=== PATIENT | female | born 1945 | race Caucasian/White ===

== ENCOUNTER 2025-08-23 09:53 | Outpatient (AMB) | payer MEDICARE, SELFPAY ==
--- NOTE | 2025-08-23 09:15 | MHC.OFFVIS ---
Intake Visit Reasons: f/ u Allergies erythromycin base Allergy (Unknown, Verified 08/21/25 10:21) Unknown Medication List - Last Reconciled 08/23/25 by Martell Chang MD dorzolamide-timolol (PF) 2-0.5 % 1 drp ophthalmic (eye) BID latanoprost 0.005% 1 drp ophthalmic (eye) DAILY lorazepam (Ativan) 0.5 mg PO DAILY PRN melatonin 1 mg PO BEDTIME PRN HPI Comments Details: 80 yr old woman with cerebral microvascular disease. Occasional ringing and clicking in ears. No vertigo. Had laser to [facility] for Glaucoma last week. Her back pain mc sresolved. She developed back pain in February after carrying awkward object on the stairs. [facility] [place] [facility] on 02/19/[place]25. CTA chest showed incident finding of 0.2cm left upper lobe nodule, recommend follow up CT in 1 year. Labs were okay. Occasional tinnitus from time to time. Sleep is disrupted better with medication. Mood was okay. Was having some increased anxiety previously due to family issues and passing of her sister with cancer. Some hearing loss. No true vertigo or tinnitus. Two very brief unrelated presyncopal episodes with negative cardiac work up. Neck pain that is chronic. MRI LS spine on 09/10/15 shows some L2-3 endplate edema, a small Schmorls node and a possible atypical hemangioma and some mild degen disc changes. She has a history of borderline hypertension and mild hypercholesterolemia slipped and fell on ice on 08/15/14 and hit her left shoulder. She had a syncopal episode. Her eyes rolled back and she wasn't coherent. MRI wendy in 2015 showed lacunar infarct in the left anterior internal capsule. The MRI shows mild microvascular disease in the subcortical and deep white matter distribution, not unusual for her age and hypertensive history. There was no evidence of any cord lesion or stroke. [facility] Medical History (Updated 08/23/25 @ 09:19 by Martell Chang MD) Cervical spondylolysis Cervical radiculopathy Insomnia Back pain Review of Systems Const Details: General/Constitutional:? Change in appetitedenies.? Chillsdenies.? Fatiguedenies.? Feverdenies.? Weight gaindenies.? Weight lossdenies. ???Sleep:? Difficulty getting to sleepdenies.? Difficulty maintaining sleepadmits.? Urge to move legsdenies.? Teeth grindingdenies.? Shouting or Kicking during sleepdenies.? Abnormal behavior during sleepdenies.? Excessive sleepdenies.? Snoringdenies.? Daytime sleepinessdenies. ???Respiratory:? Shortness of breathdenies.? Chest paindenies.? Coughdenies. ???Cardiovascular:? Chest pain at restadmits.? Chest pain with exertiondenies.? Claudicationdenies.? Dizzinessdenies.? Fluid accumulation in the legsdenies.? Irregular heartbeatdenies.? Palpitationsdenies. ???Gastrointestinal:? Abdominal paindenies.? Constipationdenies.? Diarrheadenies.? Difficulty swallowingdenies.? Heartburndenies.? Nauseadenies.? Rectal bleedingdenies. ???Genitourinary:? Frequent urinationdenies.? Urgencydenies.? Incontinencedenies.? Erectile Dysfunctiondenies. ???Musculoskeletal:? Neck painadmits.? Back paindenies.? Muscle achesdenies.? Painful jointsdenies.? Sciaticadenies.? Weaknessdenies. ???Neurologic:? Difficulty swallowingdenies.? Balance difficultydenies.? Coordinationnormal.? Difficulty speakingdenies.? Dizzinessdenies.? Faintingdenies.? Gait abnormalitydenies.? Headacheadmits.? Loss of strengthdenies.? Loss of use of extremitydenies.? Low back paindenies.? Memory lossdenies.? Seizuresdenies.? Ticsdenies.? Tingling/NumbnessLeft arm and left lower face.? Transient loss of visiondenies.? Tremordenies. ???Psychiatric:? Anxietyadmits.? Auditory/visual hallucinationsdenies.? Delusionsdenies.? Depressed mooddenies.? Stressorsdenies.? Substance abusedenies.? Suicidal thoughtsdenies. Reports difficulty sleeping and Reports headache(s) ENT Reports headache(s) Musc Reports tingling Neuro Details: left face Reports headache(s) and Reports tingling Psych Reports anxiety Physical Exam Neuro Other: Neurological: Abnormal neurological findings:??none.?Mental Status:??alert and oriented X 3,?Normal attention, orientation, memory and affect.?Cranial Nerves:??Pupils are equal, round and reactive to light. Fundoscopy shows normal disc bilaterally. External occular muscles are intact. Visual quan are full, no ptosis. Face is symmetrical, no facial weakness or droop. Facial sensations are normal. Tongue protrudes in midline. Palate elevates symmetrically. Shoulder shrugging is normal..?Motor Examination:??Normal muscle tone, bulk and strength,?No atrophy or fasciculations,?No drift of the extended upper extremities,?Deep tendon reflexes are 2+?,?Plantars are flexor?.?Straight Leg Raising:??90 degrees.?Sensory Exam:??Normal light touch, temperature, pinprick, vibration and joint-position sensations?,?Rhomberg sign is absent.?Coordination:??no ataxia,?no titubation,?rcskah-ol-vzin, kuez-ngre-ding test and rapid alternating movements were normal.?Gait Exam:??Within normal limits.?Cerebellar Signs:??Gtktml-[id number] and msgs-ju-ycjg is normal,?no dysdiadochokinesia?.?Extrapyramidal System:??No tremor, rigidity with normal facial expressions,?No bradykinesia, no bradyphrenia. Normal arm swing and posture. No propulsion or retropulsion.?Speech:??Normal,?no dysphasia or dysarthria..? Mini Mental Status Exam: Level of Consciousness:??Alert.?Orientation:??Knows correct year, month, date, day and season,?Knows correct city, county and state. Knows correct location and floor.?Registration:??Able to register 3 objects.?Attention:??Serial 7's performed accurately.?Recall:??Able to recall 3 out of 3 objects.?Language:??Normal spontaneous speech, fluency, repetition,naming, comprehension, reading and writing.?Total Score:??30/30.? Assessment & Plan Assessment & Plan (1) Cerebral microvascular disease: Code(s): I67.89 - Other cerebrovascular disease Category: Medical (2) Back pain: Code(s): M54.9 - Dorsalgia, unspecified Category: Medical (3) Cervical spondylolysis: Code(s): M43.02 - Spondylolysis, cervical region Category: Medical Plan Continue to monitor BP. Continue other meds. Does not want anything for sleep. Coding Level of Care Code Est Pt Level 4 (70885) Diagnoses Cerebral microvascular disease I67.89 Back pain M54.9 Cervical spondylolysis M43.02
--- OUTSIDE RECORDS SUMMARY | 2025-08-23 11:50 | XMS_ITS | Patient Health Record ---
Author Organization [facility] Address [address] [place] [address] Care Team Providers Care Visual Supervisor Name Role Phone Rosangela Muse Unavailable [phone] Allergies Allergen (clinical drug ingredient) Drug/Non Drug Allergy documented on EMR Reaction Allergy Type Onset Date Status Corticosteroids Support Glaucoma Drug Allergy Active erythromycin Erythromycin Unknown Drug Allergy A ctive Reason For Referral No Information Medications Medication SIG (Take, Route, Fr equency, Duration) Notes Start Date End Date Status Latanoprost 0.005 % 1 drop into affected eye in the evening Ophthalmic Once a day Ac tive Social History Tobacco Use: Social History Observation Description Date Details (start date - stop date) Never Smoker NA - NA Tobacco Use/Smoking Question Answer Notes Are you a nonsmoker Alcohol Screen (Audit-C) Question Answer Notes Did you have a drink containing alcohol in the p ast year? No Points 0 Interpretation Negative Sexual History Question Answer Notes Had sex in the past 12 months (vaginal, oral, or anal)? No Problems Problem Type SNOMED Code ICD Code Onset Dates Problem Status W/U Status Risk Notes Problem Postmenopausal atrophic vaginitis (24751909) Postmenopausal atrophic vaginitis (N95.2) Active confirmed Problem Age-related osteoporosis (684705952) Age-related osteoporosis without current pathological fracture (M81.0) Active confirmed Problem Essential hypertension (16184747) Essential (primary) hypertension (I10) Active confirmed Problem Hyperlipidemia (30304993) Hyperlipidemia, unspecified (E78.5) Active confirmed Problem Cataract (disorder) (469956577) Cataract in diseases classified elsewhere (H28) Active confirmed Problem Menopause (115127619) Menopausal and female climacteric states (N95.1) Active confirmed Problem Female genital organ symptoms (600838011) Other specified symptom associated with female genital organs (625.8) Active confirmed Major Problem Menopausal symptom (16655102) Symptomatic menopausal or female climacteric states (627.2) Active confirmed Major Problem Postmenopausal atrophic vaginitis (16595741) Postmenopausal atrophic vaginitis (627.3) Active confirmed Diag Problem Osteoporosis (09599037) Unspecified osteoporosis (733.00) Active confirmed Diag Problem Gynecological examination normal (076290682608990) Routine gynecological examination (V72.31) Active confirmed Diag Problem Screening for malignant neoplasm of cervix (032575734) Screening for malignant neoplasm of the cervix (V76.2) Active confirmed Diag Problem Screening for malignant neoplasm of colon (850503798) Special screening for malignant neoplasms, colon (V76.51) Active confirmed Major Plan Of Treatment Pending Test Test Name Order Date DIAGNOSTIC MAMMOGRAM, LEFT BREAST 2021 MM Digital Mammo Screening 07/18/2022 Insurance Providers Payer Name Payer Address Payer Phone Subscriber Number Group Number Insured Name Patient Relationship to Insured Coverage Start Date Coverage End Date MEDICARE [address] [facility] [place] [id number] ATHTE ZAPIEN Self - patient is the insured [facility] [address] [place] [address] [id number] TE KNOWLES Self - patient is the insured Medical (General) History Medical History History ICD Code Menopausal and female climacteric states N95.1 Postmenopausal atrophic vaginitis N95.2 Age-related osteoporosis without current pathological fracture M81.0 Essential (primary) hypertension I10 Cataract in diseases classified elsewher e H28 Hyperlipidemia, unspecified E78.5 Surgical History Surgery Date(Month/Year) Breast Mass Excision Left S&O Colonoscopy Hospitalization History Reason Date(Month/Year) See Surgical Hx
--- OUTSIDE RECORDS SUMMARY | 2025-08-23 11:50 | XMS_ITS | Patient Health Record ---
Author Organization [facility] Address [address] [place] [address] Care Team Providers Care Supervisor Whipped Topping Name Role Phone RENETTA LOPEZ [phone] Reason For Referral No Information Medications Medication SIG (Take, Route, Frequency, Duration) Notes Start Date End Date Status Ventolin HFA (Albuterol) 90mcg/1actuatio *please review for potential update for e-prescription and drug interaction check* Ventolin HFA (Albuterol) 90mcg/1actuation Oral Inhaler Inhale 2 puff(s) by mouth q 4 to 6 hr prn cough/wheeze #18 (Eighteen) gm 10/03/2014 Active Ceftin (Cefuroxime Axetil) 500mg Tablet Take 1 tablet(s) by mouth q12h for 10 days; Duration: 10 *please review for potential update for e-prescription and drug interaction check* Ceftin (Cefuroxime Axetil) 500mg Tablet 1 tab(s) po bid for 10 days #20 (Twenty) tablet(s) 10/24/2010 Active Problems Problem Type SNOMED Code ICD Code Onset Dates Problem Status W/U Status Risk Notes Problem Acute non-suppurative otitis media - serous (778119230) Acute serous otitis media (381.01) 1 0 confirmed [id number]- Problem URI (5483201960) URI (465.8) 5 0 confirmed [id number]- Problem Acute upper respiratory infection (40185057) Upper respiratory illness (465.8) 1 0 confirmed [id number]- Plan Of Treatment No Information Insurance Providers Payer Name Payer Address Payer Phone Subscriber Number Group Number Insured Name Patient Relationship to Insured Coverage Start Date Coverage End Date Medicare Part B [address] [place] [phone] [id number] null, null Self - patient is the insured [facility] [address] [place] [address] [id number] null, null Self - patient is the insured
--- OUTSIDE RECORDS SUMMARY | 2025-08-23 11:50 | XMS_ITS | Clinical Summary ---
Author Organization [address] Address [address] [place] [id number] Care Team Providers Care Water Rights Specialist Name Role Phone No, Pcp (Do Not Change Name) Primary Care Provid er Unavailable Allergies Active Allergy Reactions Criticality Noted Date Comments Achromycin GI Upset High 06/09/2024 Medications latanoprost (XALATAN) 0.005 % ophthalmic solution Place 1 drop into both eyes nightly. Active Family History Relation Name Status Comments Father Mother Social History Tobacco Use Types Packs/Day Years Used Date Smoking Tobacco: Never Tobacco Cessation:Counseling Given: Not Answered Alcohol Use Standard Drinks/Week Comments Not Currently 0 (1 standard drink = 0.6 oz pur e alcohol) Comments Unknown Sex and Gender Information Value Date Recorded Sex Assigned at Not on file Legal Sex Female 8:42 AM EDT Gender Identity Not on file Sexual Orientation Not on file Last Filed Vital Signs Vital Sign Reading Time Taken Comments Blood Pressure 154/91 06/09/2024 3:41 PM EDT Pulse 63 06/09/2024 3:41 PM EDT Temperature 36.9 C (98.5 F) 06/09/2024 3:41 PM EDT Respiratory Rate 16 06/09/2024 3:41 PM EDT Oxygen Saturation 98% 06/09/2024 3:41 PM EDT Inhaled Oxygen Concentration - - Weight 63.5 kg (140 lb) 06/09/2024 3:41 PM EDT Height 166.4 cm (5' 5.5 ) 06/09/2024 3:41 PM EDT Body Mass Index 22.94 06/09/2024 3:41 PM EDT Plan of Treatment Health Maintenance Due Date Last Done Comments HIV screening 1956 Tetanus adult (Td q 10,TDAP once) 1963 Lipid disorder screening 1983 Diabetes screening 1988 Pneumococcal Vaccine (50+ ye ars) (1 of 1 - PCV) 1993 Shingles vaccine (Shingrix) (1 of 2 - Shingrix (RZV) 2 Dose Standard Series) 1993 Osteoporosis screening (bone density) 2008 RSV Immunization (1 - 1-dose 75+ series) 2018 Influenza vaccine 04/07/2025 Covid-19 vaccine series ( - 2024- season) 2025 Breast cancer screening Discontinued Cervical cancer screening Discontinued Colon cancer screening, Colonoscopy Discontinued Meningococcal B Vaccine Aged Out No l onger eligible based on patient's age to complete this topic Meningococcal Vaccine Aged Out No ra demi eligible based on patient's age to complete [place] [id number] [address] [facility] [place] [id number] [address] [place] [address] [facility] Care Teams Water Rights Specialist Relationship Specialty Start Date End Date No, Pcp (Do Not Change Name) PCP - General 06/09/24
--- OUTSIDE RECORDS SUMMARY | 2025-08-23 11:50 | XMS_ITS ---
Author Name [facility] Organization Unknown History of Medication Use Medication Directions Dispensed Refills Start Date End Date Stat us levocetirizine (XYZAL) 5 mg tablet Take 1 tablet (5 mg total) by mouth every evening before dinner. 06/09/2024 07/10/2024 active latanoprost (XALATAN) 0.005 % ophthalmic solution Place 1 drop into both eyes nightly. active Allergies Allergen Reaction Severity Comment Documented Date Source Statu s ACHROMYCIN GI UPSET 06/09/2024 [facility] active Problems Problem Status Onset Date Problem Type Date of Resoluti on Source COVID-19 active EncounterDiagnosisAct [facility] Nasal congestion active EncounterDiagnosisAct [facility] Encounters Encounter Type Encounter Reason Primary Diagnosis Location Date Ambulatory Other specified usha l infection, in conditions classified elsewhere and of unspecified site Other specified viral infection, in conditions classified elsewhere and of unspecified site [facility] 06/09/2024 Care Team Organization Name Specialty Phone Email Start Date End Da te [facility] 06/09/2024 [facility] NO PROVIDER Primary Care 09/27/2023 [facility] 023 05/24/2023 [facility] 023
== END 2025-08-23 10:42 | disposition home or self-care (01) ==
LOC: HO.HSM 09:53
PROVIDERS: PCP Internal Medicine Pulmonary Disease; Visit Provider Psychiatry & Neurology Neurology
DX: I67.89 Other cerebrovascular disease (principal); M54.9 Dorsalgia, unspecified; M43.02 Spondylolysis, cervical region
CPT/HCPCS: 99214

== ENCOUNTER → 2025-08-23 09:53 | Outpatient (BNVA) | payer MEDICARE, SELFPAY | PROVIDERS: PCP Internal Medicine Pulmonary Disease; Visit Provider Psychiatry & Neurology Neurology | DX: I67.89 Other cerebrovascular disease (principal); M43.02 Spondylolysis, cervical region; Z87.891 Personal history of nicotine dependence | CPT/HCPCS: 99212 ==